=== PATIENT | female | born 2000 | race Caucasian/White ===

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

== ENCOUNTER 2018-01-13 15:21 | Emergency (ER) | payer OTHER ==
[2018-01-13 15:28] VITALS: BP 117/78; PULSE 85; TEMP 98.9; BMI 32.8
--- NOTE | 2018-01-13 16:28 | PDOC ---
History of Present Illness - General Chief Complaint: Pain Stated Complaint: SHOULDER PAIN Time Seen by Provider: 01/13/18 16:09 History Source: Patient Exam Limitations: No Limitations - History of Present Illness Initial Comments: 01/13/18 16:20 HISTORY OF PRESENT ILLNESS: This is a 18-year-old woman past medical history of GERD who presents emergency department for HVAC right clavicular and right shoulder pain to the past 4 days. Patient states it is similar episode approximately one month ago which spontaneously resolved at this 7 days. This time the pain is worse and is now extended to her shoulder. Patient states the pain gets worse when you press on the clavicle in the sternum. She reports decreased range of motion secondary to pain. Patient is tried [id number] pain medications been minimally effective in relieving pain. No recent travel or sick contacts. PAST MEDICAL HISTORY: GERD SURGICAL HISTORY: Denies ALLERGIES: No known drug allergies REVIEW OF SYSTEMS General/Constitutional: Denies fever or chills. Denies weakness, weight change. HEENT: Denies change in vision. Denies ear pain or discharge. Denies sore throat. Cardiovascular: Denies chest pain or shortness of breath. Respiratory: Denies cough, wheezing, or hemoptysis. Gastrointestinal: Denies nausea, vomiting, diarrhea or constipation. Denies rectal bleeding. Genitourinary: Denies dysuria, frequency, or change in urination. Musculoskeletal: Right clavicular pain extending to right shoulder. Denies neck or back pain. Skin and breasts: Denies rash or easy bruising. Neurologic: Denies headache, vertigo, loss of consciousness, or loss of sensation. Psychiatric: Denies depression or anxiety. Endocrine: Denies increased thirst. Denies abnormal weight change. Hematologic/Lymphatic: Denies anemia, easy bleeding, or history of blood clots. Allergic/Immunologic: Denies hives or skin allergy. Denies latex allergy. PHYSICAL EXAM General Appearance: Well-appearing, appropriately dressed. No apparent distress , no intoxication. HEENT: EOMI, PERRLA, normal ENT inspection, normal voice, TMs normal, pharynx normal. No conjunctival pallor. No photophobia, scleral icterus. Neck: Supple. Trachea midline. No tenderness, rigidity, carotid bruit, stridor , lymphadenopathy, or thyromegaly. Respiratory/Chest: Lungs CTAB. No shortness of breath, chest tenderness, respiratory distress, accessory muscle use. No crackles, rales, rhonchi, stridor , wheezing, dullness Cardiovascular: RRR. S1, S2. No JVD, murmur, bradycardia, tachycardia. Vascular Pulses: Dorsalis-Pedis (R): 2+, Dorsalis-Pedis (L): 2+ Gastrointestinal/Abdominal: Normal bowel sounds. Abdomen soft, non-distended. No tenderness or rebound tenderness. No organomegaly, pulsatile mass, guarding, hernia, hepatomegaly, splenomegaly. Lymphatic: No adenopathy, tenderness. Musculoskeletal/Extremities: Normal inspection. FROM of all extremities, normal capillary refill. Pelvis Stable. No CVA tenderness. No tenderness to extremities, pedal edema, swelling, erythema or deformity. Right clavicle tender to palpation over the's sternoclavicular joint. No palpable deformities noted. Full range of motion of the right shoulder. No deformities noted in the AC joint. Integumentary: Appropriate color, dry, warm. No cyanosis, erythema, jaundice or rash Neurologic: food truck caterer II-XII intact. Fully oriented, alert. Appropriate mood/affect. Motor strength 5/5. No appreciable EOM palsy, facial droop or sensory deficit. Past History - Past Medical History Allergies/Adverse Reactions: Allergies Allergy/AdvReac Type Severity Reaction Status Date / Time pineapple Allergy Severe Swelling Verified 01/13/18 15:29 Home Medications: Ambulatory Orders NK [No Known Home Medication] 01/13/18 Asthma: No Cancer: No Cardiac Disorders: No COPD: No Diabetes: No GI Disorders: Yes (REFLUX) HTN: No Seizures: No Thyroid Disease: No - Immunization History Immunization Up to Date: Yes - Suicide/Smoking/Psychosocial Hx Smoking History: Never smoked Have you smoked in the past 12 months: Yes Number of Cigarettes Smoked Daily: 0 If you are a former smoker, when did you quit?: 07/2017 Cigars Per Day: 0 Hx Alcohol Use: No Drug/Substance Use Hx: No Substance Use Type: Marijuana Hx Substance Use Treatment: No *Physical Exam - Vital Signs Last Vital Signs Temp Pulse Resp BP Pulse Ox 98.9 F 85 18 117/78 99 01/13/18 15:26 01/13/18 15:26 01/13/18 15:26 01/13/18 15:26 01/13/18 15:26 ED Treatment Course - RADIOLOGY Radiology Studies Ordered: Category Date Time Status CHEST PA & LAT [RAD] Stat Radiology 01/13/18 16:19 Ordered SHOULDER-RIGHT [RAD] Stat Radiology 01/13/18 16:19 Ordered Medical Decision Making - Medical Decision Making 01/13/18 16:20 A/P: 18-year-old female denies medical history with atraumatic right navicular and shoulder pain for the past 4 days Bony tenderness at the sternoclavicular junction No deformity or crepitus palpated Full range of motion of shoulder without difficulty urine , x-rays, reassess 01/13/18 17:29 X-ray of right shoulder as read by me: No acute fractures or dislocations noted in the right shoulder. Chest x-ray as read by me: Angles clear. Cardex silhouette is within normal limits. Visualized osseous structures are intact. I will discharge the patient home to follow-up with primary doctor for continued evaluation. *DC/Admit/Observation/Transfer Diagnosis at time of Disposition: Joint pain in the shoulder/clavicle region Qualifiers: Laterality: right Qualified Code(s): M25.511 - Pain in right shoulder - Discharge Dispostion Disposition: HOME Condition at time of disposition: Stable Decision to Admit order: No - Referrals Referrals: Magda Soto MD [Primary Care Provider] - - Patient Instructions Additional Instructions: Take Tylenol as needed for pain. Follow manufacturers instructions for appropriate dosage. Apply ice for 20 minutes and removed for at least 20 minutes before reapplying the ice. Return to emergency department for discoloration of the foot, numbness or tingling to the foot, worsening pain, or any other concerns. Thank you very much for choosing us to provide your emergent healthcare needs. - Post Discharge Activity Forms/Work/School Notes: Back to Work
[2018-01-13] MEDS ORDERED: KETOROLAC TROMETHAMINE 30 MG/1 ML VIAL IM ONE (16:47)
[2018-01-13] MEDS ORDERED: KETOROLAC TROMETHAMINE 30 MG/1 ML VIAL ONE (16:57)
== END 2018-01-13 17:35 | disposition home or self-care (01) ==
LOC: JERFT 15:21
PROC: 3E0233Z Introduction of Anti-inflammatory into Muscle, Percutaneous Approach (ICD-10-PCS; principal; 2018-01-13)
DX: M25.511 Pain in right shoulder (principal); K21.9 Gastro-esophageal reflux disease without esophagitis
CPT/HCPCS: 71046-TC-FY; 73030-TC-RT-FY; 84703; 96372; 99281-25

== ENCOUNTER 2018-07-31 19:12 | Emergency (ER) | payer SELFPAY ==
--- NOTE | 2018-07-31 19:19 | PDOC ---
Rapid Medical Evaluation Time Seen by Provider: 07/31/18 19:14 Medical Evaluation: Allergies Allergy/AdvReac Type Severity Reaction Status Date / Time pineapple Allergy Severe Swelling Verified 01/13/18 15:29 07/31/18 19:14 I have performed a brief in-person evaluation of this patient. The patient presents with a chief complaint of: Nausea w/ abd cramps and "feeling gassy" x 2 days. Had 1 e/o vomiting last night. No diarrhea, f/c. Mother and nephew w/ similar sxs. No recent travel or unusual food. States she is here because her job requires a doctor's visit and work note. H/o lactose intolerance Pertinent physical exam findings:well tammy and stable w/ benign abd I have ordered the following:nothing The patient will proceed to the ED for further evaluation Discharge Disposition - Diagnosis Nausea and vomiting Qualifiers: Vomiting type: unspecified Vomiting Intractability: non-intractable Qualified Code(s): R11.2 - Nausea with vomiting, unspecified - Referrals - Patient Instructions - Post Discharge Activity
[2018-07-31 19:20] VITALS: BP 116/71; PULSE 72; TEMP 98.1; BMI 32.8
--- NOTE | 2018-07-31 19:47 | PDOC ---
History of Present Illness - General Chief Complaint: Nausea Stated Complaint: NAUSEA Time Seen by Provider: 07/31/18 19:14 - History of Present Illness Initial Comments: 07/31/18 19:46 18-year-old female presents for evaluation of nausea and one episode of vomiting over the last 2 days. She has multiple sick contacts at home. She has no comorbidities. Past History - Past Medical History Allergies/Adverse Reactions: Allergies Allergy/AdvReac Type Severity Reaction Status Date / Time pineapple Allergy Severe Swelling Verified 07/31/18 19:18 Home Medications: Ambulatory Orders NK [No Known Home Medication] 01/13/18 Asthma: No Cancer: No Cardiac Disorders: No COPD: No Diabetes: No GI Disorders: Yes (REFLUX) HTN: No Seizures: No Thyroid Disease: No - Immunization History Immunization Up to Date: Yes - Suicide/Smoking/Psychosocial Hx Smoking History: Never smoked Have you smoked in the past 12 months: No Number of Cigarettes Smoked Daily: 0 If you are a former smoker, when did you quit?: 07/2017 Cigars Per Day: 0 Information on smoking cessation initiated: No Hx Alcohol Use: No Drug/Substance Use Hx: No Substance Use Type: Marijuana Hx Substance Use Treatment: No Review of Systems - Review of Systems Constitutional: No: Fever ABD/GI: Yes: Nausea, Vomiting *Physical Exam - Vital Signs Last Vital Signs Temp Pulse Resp BP Pulse Ox 98.1 F 72 16 116/71 100 07/31/18 19:18 07/31/18 19:18 07/31/18 19:18 07/31/18 19:18 07/31/18 19:18 - Physical Exam Comments: 07/31/18 19:46 HEAD: NC/AT EYES: Conjuntiva clear Ears: Canals and TM's normal NOSE: No d/c THROAT: Moist mucous membrances, oral pharanx clear, uvula midline NECK: Supple without adenopathy CARDIAC: S1 S2 LUNGS: CTA Full and Equal breath sounds ABDOMEN: Soft NT ND MS: Full ROM in all joints without edema NEUROLOGIC: No gross sensory or motor deficits, NVID SKIN: Normal color and temperature no lesions or rashes Medical Decision Making - Medical Decision Making 07/31/18 19:45 Most likely a viral gastroenteritis, multiple sick contacts at home *DC/Admit/Observation/Transfer Diagnosis at time of Disposition: Viral gastroenteritis Diagnosis at time of Disposition: (Ruled Out): Nausea and vomiting - Discharge Dispostion Disposition: HOME Condition at time of disposition: Stable Decision to Admit order: No - Referrals Referrals: Jessy Morales MD [Primary Care Provider] - - Patient Instructions Printed Discharge Instructions: DI for Viral Gastroenteritis -- Adult Additional Instructions: Return to the emergency room for worsening symptoms. Light diet consisting of crackers and soups. He like to maintain hydration small sips frequently throughout the day. Follow-up with your primary care physician once 2 days for further evaluation and treatment options. - Post Discharge Activity Forms/Work/School Notes: Back to Work
== END 2018-07-31 20:15 | disposition home or self-care (01) ==
LOC: JERFT 19:12
DX: K52.9 Noninfective gastroenteritis and colitis, unspecified (principal); K21.9 Gastro-esophageal reflux disease without esophagitis
CPT/HCPCS: 99281-25

== ENCOUNTER 2018-09-07 21:45 | Emergency (ER) | payer OTHER | END 2018-09-07 23:02 | disposition home or self-care (01) | LOC: JERFT 21:45 ==